=== PATIENT | male | born 1985 | race African-American/Black ===

== ENCOUNTER 2016-08-30 14:42 | Emergency (ER) | payer BC ==
--- NOTE | ~2016-08-30 | CR63 ---
[facility] A Service of [facility] & [facility] RADIOLOGY TEXT RESULTS PATIENT: ALEXANDRA ARMSTRONG LOCATION: CFTX : 87 UNIT #: [id number] AGE: [address]: ROCIO BARAHONA SEX: M ORDER DR: [id number] [facility] [address]. [place], [place] [address] [id number] E MR#: [id number] Acc #: [id number] NAME: ALEXANDRA ARMSTRONG : 1985 SEX: M STUDY DATE/TIME: 08/30/2016 13:49 UNIT: [facility] ROOM: STUDY DESCRIPTION: CR Chest 2 View Attending Physician: Rocio Barahona Aprn Ordering Physician: Ed Doctor [id number] [facility] Primary Care Physician: Primary Care Physician No MEDICAL IMAGING REPORT This report is preliminary unless electronic signature is present EXAM PA and lateral chest performed on 08/30/2016 HISTORY 30-year-old male with chest pain FINDINGS The heart is not enlarged. The lungs are clear. No pleural effusion or pneumothorax is identified. The osseous chest is age appropriate. IMPRESSION 1. No acute pulmonary disease and no cardiac enlargement. 2. No pleural effusion or pneumothorax. Dictated by... Ronnell Perez M.D. THIS IS AN ELECTRONICALLY VERIFIED REPORT Ronnell Perez M.D. at 08/30/2016 7:02 PM RP/to TD: 08/30/2016 16:16 JOB #: [id number] MEDICAL IMAGING REPORT COPY
== END 2016-08-30 14:53 | disposition home or self-care (01) ==
LOC: CFTX 14:42
DX: R07.89 Other chest pain (principal)
CPT/HCPCS: 71020; 99283; 99284